=== PATIENT | male | born 1940 | race Two or more races ===

== ENCOUNTER 2025-03-12 17:32 | Emergency (ER) | payer MEDICARE, OTHER ==
[~2025-03-12] VITALS: Ht 165.1 cm; Wt 46.6 kg
--- NOTE | 2025-03-12 18:35 | ED.PDOC ---
[place] trauma (HPI) HPI Comments 85 year old male with PMHx Dementia, Alzheimer presents to the ED with a chief complaint of fall injury onset today. Daughter states patient was walking to backyard when he tripped, fell forward, hit his LT forehead with corner of wood table. Since then, patient has been experiencing intermittent bleeding to laceration, headache. Fall was not witnessed. Patient is poor historian. No other symptoms or modifying factors present at this time. Chief Complaint: Fall Injury Time Seen by MD: 18:25 Reviewed notes: Medications, Allergies Allergies: Coded Allergies: No Known Drug Allergy (Verified Allergy, Unknown, 03/12/25) Information Source: Patient, Relative Mode of Arrival: Ambulatory Severity: Moderate Timing: Hours Duration: Since onset Prehospital treatment: None Location: Head Location of laceration: Head Mechanism: Fall Associated signs and symtoms: Headache Past Medical History PAST MEDICAL HISTORY: Alzheimer, Dementia Surgical History: Denies all surgeries Family History Family History: Reviewed,noncontributory to illness, No family hx of Cancer, No family hx of DM, No family hx of Heart preeti, No family hx of HTN, No family hx ofKidney preeti, No family hx of Liver preeti, No family hx of Lung preeti, No family hx of Stroke Social History Smoker: Non-Smoker Alcohol: Denies ETOH Use Drugs: Denies Drug Use Lives In: Home Constitutional: denies: chills, diaphoresis, fatigue, fever, malaise, sweats, weakness, others EENTM: denies: blurred vision, double vision, ear bleeding, ear discharge, ear drainage, ear pain, ear ringing, eye pain, eye redness, hearing loss, mouth pain, mouth swelling, nasal discharge, nose bleeding, nose congestion, nose pain, photophobia, tearing, throat pain, throat swelling, voice changes, others Respiratory: denies: cough, hemoptysis, orthopnea, SOB at rest, shortness of breath, SOB with excertion, stridor, wheezing, others Cardiovascular: denies: chest pain, dizzy spells, diaphoresis, Dyspnea on exertion, edema, irregular heart beat, left arm pain, lightheadedness, palpitations, PND, syncope, others Gastrointestinal: denies: abdomen distended, abdominal pain, blood streaked bowels, constipated, diarrhea, dysphagia, difficulty swallowing, hematemesis, melena, nausea, poor appetite, poor fluid intake, rectal bleeding, rectal pain, vomiting, others Genitourinary: denies: burning, dysuria, flank pain, frequency, hematuria, incontinence, penile discharge, penile sore, pain, testicle pain, testicle swelling, urgency, others Neurological: reports: headache; denies: dizziness, fainting, left sided numbness, left sided weakness, numbness, paresthesia, pre-existing deficit, right sided numbness, right sided weakness, seizure, speech problems, tingling, tremors, weakness, others Musculoskeletal: denies: back pain, gout, joint pain, joint swelling, muscle pain, muscle stiffness, neck pain, others Integumetry: reports: laceration (LT forehead); denies: bruises, change in color, change in hair/nails, dryness, lesions, lumps, rash, wounds, others Allergic/Immunocompromised: denies: Difficulty Healing, Frequent Infections, Hives, Itching, others Hematologic/Lymphatic: denies: anemia, blood clots, easy bleeding, easy bruising, swollen glands, others Endocrine: denies: excessive hunger, excessive sweating, excessive thirst, excessive urination, flushing, intolerance to cold, intolerance to heat, unexplained weight gain, unexplained weight loss, others Psychiatric: denies: anxiety, bipolar disorder, depression, hopeless, panic disorder, schizophrenia, sleepless, suicidal, others All Other Systems: Reviewed and Negative Physical Exam General Appearance: Normal HEENT: Normal ENT Inspection, Pharynx Normal, TMs Normal Neck: Full Range of Motion, Non-Tender, Normal, Normal Inspection Respiratory: Chest Non-Tender, Lungs Clear, No Accessory Muscle Use, No Respiratory Distress, Normal Breath Sounds Cardiovascular: No Edema, No JVD, No Murmur, No Gallop, Normal Peripheral Pulses, Regular Rate/Rhythm Breast Exam: Deferred Gastrointestinal: No Organomegaly, Non Tender, No Pulsatile Mass, Normal Bowel Sounds, Soft Genitalia: Deferred Pelvic: Deferred Rectal: Deferred Extremities: No calf tenderness, Normal capillary refill, Normal inspection, Normal range of motion, Non-tender, No pedal edema Musculoskeletal : Apperance: Normal Neurologic: Alert, fire hose curer II-XII nml as Tested, No Motor Deficits, Normal Affect, Normal Mood, No Sensory Deficits Cerebellar Function: Normal Reflexes: Normal Skin: Dry, Normal Color, Warm Lymphatic: No Adenopathy Was a procedure done? Was a procedure done?: No Differential Diagnosis Multiple Trauma: Closed Head Injury, Cardiac Injury, Fractures, Pneumothorax, Cerebral Contusion, Pulmonary Contusion, Spine Injury, Tracheal Injury, Urological Injury, Vascular Injury, Contusion, Foreign Body, Hematoma, Laceration, Encephalopathy, Other X-Ray, Labs, Meds, VS Vital Signs Date Time Temp Pulse Resp B/P (MAP) Pulse Ox O2 Delivery O2 Flow Rate FiO2 03/12/25 19:49 99.1 76 18 126/70 (88) 99 99.1 03/12/25 17:35 97.8 80 16 110/70 96 97.8 Current Medications Medications (Trade) Dose Ordered Sig/Gio Route Start Time Stop Time Status Last Admin Lidocaine HCl (Xylocaine 1%) 10 ml ONCE ONCE ID 03/12/25 18:45 03/12/25 18:46 DC 03/12/25 20:24 [place] [address] Ph: [phone] DIAGNOSTIC IMAGING Diagnostic Imaging Report : [id number] Signed PATIENT: RAQUEL PAREDES ACCT: [id number] UNIT: [id number] : 1940 LOC: ER ROOM / BED: / AGE / SEX: 85 / M ADM STATUS: REG ER SERVICE 33 ORDERING PHYSICIAN: GERRY CAMPO MD PROCEDURE(s): HWOCT - HEAD WITHOUT CONTRAST REASON: fall head inj ORDER NUMBER(s): [id number], ACCESSION NUMBER(s): [id number] Procedure: CT HEAD WITHOUT CONTRAST Study Date and Requested Time: 03/12/2025 07:14 PM History: fall head inj Comparison: None Dose: CTDI: 49.2 mGy DLP: 788.98 mGycm Technique: Multiplanar images obtained through the brain without intravenous contrast. Findings: Moderate frontoparietal predominant brain Atrophy. Mild chronic small vessel ischemic changes. Bilateral basal ganglia physiologic calcification. Prominent perivascular space of the left inferior basal ganglia. No hemorrhages, masses, mass effect, midline shift, herniation or cytotoxic edema following a large vascular territory. No intra-axial or extra-axial fluid collections. No evidence of hydrocephalus. The basal cisterns are patent. The pituitary gland, sella and parasellar regions are unremarkable. The cerebellar tonsils are in normal position. The cerebellum is unremarkable. Bilateral lens replacement. Otherwise, orbits and globes are unremarkable. Chronic deformity of the left lamina papyracea. Partial opacification of the left sphenoid sinus. The remainder of the paranasal sinuses and mastoids are clear. There are no worrisome calvarial lesions. Impression: No evidence of acute intracranial abnormality. Left sphenoid sinus disease. ATED BY: CITLALI JAY DO DICTATED DATE/TIME: 03/12/251941 SIGNED BY: CITLALI JAY DO SIGNED DATE/TIME: 03/12/251941 CC: Time of 1ST Reevaluation: 18:55 Reevaluation 1ST: Unchanged Patient Education/Counseling: Diagnosis, Treatment, Prognosis Family Education/Counseling: Diagnosis, Treatment, Prognosis Departure 1 Departure Time of Disposition: 20:50 Impression: Primary Impression: Forehead laceration Additional Impression: Head injury Disposition: 01 HOME / SELF CARE / HOMELESS Condition: Stable Discharged With: Self, Relative Critical Care Note Critical Care Time?: No Stability Stability form required: No Heart Score Heart Score: Heart Score Response (Comments) Value History N/A 0 EKG N/A 0 Age N/A 0 Risk Factors N/A 0 Troponin N/A 0 Total 0 I personally scribed for GERRY CAMPO MD ([email or web address]) on 03/12/25 at 18:35. Electronically submitted by Oneida More ([email or web address]). I personally scribed for GERRY CAMPO MD ([email or web address]) on 03/12/25 at 20:00. Electronically submitted by Oneida More ([email or web address]). GERRY CAMPO MD Mar 12, 2025 18:35
--- NOTE | 2025-03-12 19:44 | DVH ---
Procedure: CT HEAD WITHOUT CONTRAST Study Date and Requested Time: 03/12/2025 07:14 PM History: fall head inj Comparison: None Dose: CTDI: 49.2 mGy DLP: 788.98 mGycm Technique: Multiplanar images obtained through the brain without intravenous contrast. Findings: Moderate frontoparietal predominant brain Atrophy. Mild chronic small vessel ischemic changes. Bilateral basal ganglia physiologic calcification. Prominent perivascular space of the left inferior basal ganglia. No hemorrhages, masses, mass effect, midline shift, herniation or cytotoxic edema following a large vascular territory. No intra-axial or extra-axial fluid collections. No evidence of hydrocephalus. The basal cisterns are patent. The pituitary gland, sella and parasellar regions are unremarkable. The cerebellar tonsils are in normal position. The cerebellum is unremarkable. Bilateral lens replacement. Otherwise, orbits and globes are unremarkable. Chronic deformity of the left lamina papyracea. Partial opacification of the left sphenoid sinus. The remainder of the paranasal sinuses and mastoids are clear. There are no worrisome calvarial lesions. Impression: No evidence of acute intracranial abnormality. Left sphenoid sinus disease.
[2025-03-12 19:49] VITALS: BP 126/70; PULSE 76; RESP 18; TEMP 99.1; O2SAT 99
[2025-03-12] MEDS: LIDOCAINE 1% HCL (LOCAL ANESTH.) INJ 20ML MDV ID ONE (20:24)
== END 2025-03-12 20:52 | disposition home or self-care (01) ==
LOC: ER 17:32
DX: S01.81XA Laceration without foreign body of other part of head, initial encounter (principal); S09.8XXA Other specified injuries of head, initial encounter; G30.9 Alzheimer's disease, unspecified; F02.80 Dementia in other diseases classified elsewhere, unspecified severity, without behavioral disturbance, psychotic disturbance, mood disturbance, and anxiety; W01.190A Fall on same level from slipping, tripping and stumbling with subsequent striking against furniture, initial encounter; Y93.01 Activity, walking, marching and hiking; Y92.89 Other specified places as the place of occurrence of the external cause; Y99.8 Other external cause status
CPT/HCPCS: 70450; 99284; J2003